=== PATIENT | male | born 1995 | race Caucasian/White ===

== ENCOUNTER 2017-06-20 12:22 | Emergency (ER) | payer MEDICAID, SELFPAY ==
[~2017-06-20] VITALS: Ht 175.3 cm; Wt 66.8 kg
[2017-06-20] MEDS ORDERED: PANTOPRAZOLE 40MG INJ (PROTONIX) (C9113) IV ONE (14:45)
[2017-06-20 14:51] LABS: MEAN CORPUSCULAR HEMOGLOBIN 31.4 pg (27.0-33.0); MEAN CORPUSCULAR HGB CONC 34.4 g/dl (32.0-36.5); MEAN CORPUSCULAR VOLUME 91.1 fl (80.0-96.0); PLATELET COUNT, AUTOMATED 274 10^3/uL (150-450); RED CELL DISTRIBUTION WIDTH 12.9 % (11.5-14.5); WHITE BLOOD COUNT 16.8 10^3/uL (4.0-10.0)
[2017-06-20] MEDS ORDERED: NS 1,000 ML IV ONE ×2 (15:00→15:15)
[2017-06-20 15:03] LABS: INR 1.05
[2017-06-20 15:11] LABS: ADD MANUAL DIFFER YES; DIFF SLIDE NUMBER 262; POSITIVE DIFF POS FLAG
[2017-06-20 15:15] LABS: BASOPHILS 2 % (0-4)
[2017-06-20 15:17] LABS: ANION GAP 10 MEQ/L (8-16); BLOOD UREA NITROGEN 31 MG/DL (7-18); CARBON DIOXIDE LEVEL 30 MEQ/L (21-32); CHLORIDE LEVEL 99 MEQ/L (98-107); CREATININE FOR GFR 1.18 MG/DL (0.70-1.30); GLUCOSE, FASTING 86 MG/DL (70-105); SODIUM LEVEL 139 MEQ/L (136-145)
[2017-06-20 15:18] LABS: CALCIUM LEVEL 9.5 MG/DL (8.5-10.1)
[2017-06-20] MEDS ORDERED: ISOVUE-370 76% 100ML VIAL (Q9967) As Ordered ONE (15:32)
--- NOTE | 2017-06-20 16:29 | REP ---
CT ABDOMEN AND PELVIS WITH IV CONTRAST: TECHNIQUE: Axial contrast enhanced images from the lung bases to the pubic symphysis using 100 mL Isovue 370 intravenous contrast material with multiplanar reformations. Visualized lung bases are clear. The liver, spleen, adrenals, pancreas and kidneys appear normal. There is no hydronephrosis. There is no abdominal aortic aneurysm. There is no adenopathy. There is no free air or free fluid. No bowel wall thickening is seen. No pelvic mass is seen. The urinary bladder is grossly unremarkable. IMPRESSION: Negative CT abdomen and pelvis with IV contrast. Signed by Yung Duckworth MD 06/21/2017 04:31 P
[2017-06-20 16:45] VITALS: BP 115/66
== END 2017-06-20 16:47 | disposition left against medical advice (07) ==
LOC: M ED 12:22
DX: K92.2 Gastrointestinal hemorrhage, unspecified (principal); F41.9 Anxiety disorder, unspecified; F17.200 Nicotine dependence, unspecified, uncomplicated; Z88.0 Allergy status to penicillin; Z53.21 Procedure and treatment not carried out due to patient leaving prior to being seen by health care provider
CPT/HCPCS: 74177; 80048; 85025; 85610; 85730; 86850; 86900; 86901; 96374; 99284; C9113; Q9967